=== PATIENT | female | born 1955 | race Caucasian/White ===

== ENCOUNTER 2017-04-18 20:45 | Emergency (ER) | payer BC ==
--- NOTE | 2017-04-18 21:08 | EDM.PDOC ---
ED HPI GENERAL MEDICAL PROBLEM - General Chief Complaint: Chest Pain Stated Complaint: CHEST PAIN, HEARTBURN Time Seen by Provider: 04/18/17 20:57 Source of Information: Reports: Patient History Limitations: Reports: No Limitations - History of Present Illness INITIAL COMMENTS - FREE TEXT/NARRATIVE: Divya with c/o of severe heartburn for past 2 days. Tonight noted pain going to left shoulder, No nausea. Had tried baking soda and tums. Pain has been intermittent today, not associated with position or activity. Prior hx with triple bypass. Has been doing well since. Denied fever or chills, no vomiting, No SOB. Admits pain started after drinking 2 [place] [employer]. Chest Pain Score (Numeric/FACES): 6 - Related Data Allergies Allergy/AdvReac Type Severity Reaction Status Date / Time No Known Allergies Allergy Verified 04/18/17 20:52 Home Meds: Home Meds Pantoprazole [ProTONIX] 40 mg PO DAILY 06/12/14 [History] Venlafaxine HCl [Venlafaxine ER] 75 mg PO DAILY 06/12/14 [History] Aspirin [Ecotrin] 1 tab PO DAILY 05/05/15 [History] Metoprolol Tartrate [Lopressor] 1 tab PO BID 05/05/15 [History] atorvaSTATin [Lipitor] 1 tab PO BEDTIME 05/05/15 [History] Multivits-Min/Iron/FA/Lutein [Centrum Silver Women Tablet] 1 tab PO DAILY [History] Past Medical History - Past Surgical History Other Cardiovascular Surgeries/Procedures: cardiac cath Social & Family History - Tobacco Use Smoking Status *Q: Former Smoker Years of Tobacco use: 15 Second Hand Smoke Exposure: No - Alcohol Use Days Per Week of Alcohol Use: 1 Number of Drinks Per Day: 0 Total Drinks Per Week: 0 - Recreational Drug Use Recreational Drug Use: No ED ROS GENERAL - Review of Systems Review Of Systems: ROS reveals no pertinent complaints other than HPI. ED EXAM, GENERAL - Physical Exam Exam: See Below Exam Limited By: No Limitations General Appearance: Alert, No Apparent Distress, Anxious Eye Exam: Bilateral Eye: EOMI, PERRL Ears: Normal External Exam, Normal TMs Nose: Normal Inspection Throat/Mouth: Normal Inspection, Normal Oropharynx Head: Atraumatic Neck: Normal Inspection, Full Range of Motion. No: Lymphadenopathy (L), Lymphadenopathy (R) Respiratory/Chest: No Respiratory Distress, Lungs Clear, Normal Breath Sounds Cardiovascular: Normal Peripheral Pulses, Regular Rate, Rhythm, No Edema GI/Abdominal: Normal Bowel Sounds, Soft, Tender (epigastric) Back Exam: Normal Inspection, Full Range of Motion Extremities: Normal Inspection Neurological: Alert, Oriented, Normal Cognition Psychiatric: Normal Affect, Normal Mood, Anxious Skin Exam: Warm, Dry, Intact, Normal Color Course - Vital Signs Last Recorded V/S: Last Vital Signs Temp 99 F 04/19/17 02:05 Pulse 62 04/19/17 02:05 Resp 14 04/19/17 02:05 BP 128/78 04/19/17 02:05 Pulse Ox 99 04/19/17 02:05 - Orders/Labs/Meds Orders: Active Orders 24 hr Category Date Time Status EKG 12 Lead [EKG Documentation Completion] [] URGENT Care 04/18/17 20:50 Active EKG 12 Lead [EKG Documentation Completion] [RC] URGENT Care 04/19/17 01:30 Active Labs: Laboratory Tests 04/18/17 04/18/17 04/18/17 Range/Units 21:00 21:00 21:00 WBC 7.0 (5.0-10.0) 10^3/uL RBC 4.48 (4.2-5.4) 10^6/uL Hgb 12.9 (12.0-16.0) g/dL Hct 38.9 (37.0-47.0) % MCV 86.8 (80-100) fL MCH 28.8 (27.0-34.0) pg MCHC 33.2 (33.0-35.0) g/dL Plt Count 210 (150-450) 10^3/uL Neut % (Auto) 67.8 (42.2-75.2) % Lymph % (Auto) 14.2 L (20.5-50.1) % Rhea % (Auto) 16.8 H (2-8) % Eos % (Auto) 0.9 L (1.0-3.0) % Baso % (Auto) 0.3 (0.0-1.0) % D-Dimer, Quantitative < 100 (0-400) ng/mL Sodium 141 (135-145) mmol/L Potassium 3.4 L (3.6-5.0) mmol/L Chloride 98 L (101-111) mmol/L Carbon Dioxide 32.0 H (21.0-31.0) mmol/L Anion Gap 14.4 BUN 15 (7-18) mg/dL Creatinine 0.9 (0.6-1.3) mg/dL Est Cr Clr Drug Dosing 59.89 mL/min Estimated GFR (MDRD) > 60 BUN/Creatinine Ratio 16.66 Glucose 110 H (74-105) mg/dL Calcium 9.1 (8.4-10.2) mg/dl Total Bilirubin 0.5 (0.2-1.0) mg/dL AST 22 (10-42) IU/L ALT 18 (10-60) IU/L Alkaline Phosphatase 59 (42-121) IU/L CK-MB (CK-2) (0.4-4.7) ng/mL Troponin I 0.02 (0.00-0.02) ng/ml C-Reactive Protein (0.0-1.3) mg/dL B-Natriuretic Peptide 44 (0-100) pg/ml Total Protein 6.6 L (6.7-8.2) g/dl Albumin 4.0 (3.2-5.5) g/dl Globulin 2.6 Albumin/Globulin Ratio 1.54 Amylase 34 (28-100) U/L Lipase 25 (22-51) U/L 04/18/17 04/18/17 04/19/17 Range/Units 21:00 21:00 01:04 WBC (5.0-10.0) 10^3/uL RBC (4.2-5.4) 10^6/uL Hgb (12.0-16.0) g/dL Hct (37.0-47.0) % MCV (80-100) fL MCH (27.0-34.0) pg MCHC (33.0-35.0) g/dL Plt Count (150-450) 10^3/uL Neut % (Auto) (42.2-75.2) % Lymph % (Auto) (20.5-50.1) % Rhea % (Auto) (2-8) % Eos % (Auto) (1.0-3.0) % Baso % (Auto) (0.0-1.0) % D-Dimer, Quantitative (0-400) ng/mL Sodium (135-145) mmol/L Potassium (3.6-5.0) mmol/L Chloride (101-111) mmol/L Carbon Dioxide (21.0-31.0) mmol/L Anion Gap BUN (7-18) mg/dL Creatinine (0.6-1.3) mg/dL Est Cr Clr Drug Dosing mL/min Estimated GFR (MDRD) BUN/Creatinine Ratio Glucose (74-105) mg/dL Calcium (8.4-10.2) mg/dl Total Bilirubin (0.2-1.0) mg/dL AST (10-42) IU/L ALT (10-60) IU/L Alkaline Phosphatase (42-121) IU/L CK-MB (CK-2) 2.20 (0.4-4.7) ng/mL Troponin I < 0.02 (0.00-0.02) ng/ml C-Reactive Protein 2.6 H (0.0-1.3) mg/dL B-Natriuretic Peptide (0-100) pg/ml Total Protein (6.7-8.2) g/dl Albumin (3.2-5.5) g/dl Globulin Albumin/Globulin Ratio Amylase (28-100) U/L Lipase (22-51) U/L Meds: Medications Discontinued Medications Generic Name Dose Route Start Last Admin Trade Name Freq PRN Reason Stop Dose Admin Famotidine 20 mg 04/18/17 21:57 04/18/17 22:05 Pepcid IVPUSH 04/18/17 21:58 20 mg ONETIME ONE Administration - Radiology Interpretation Free Text/Narrative:: CXR negative. - Re-Assessments/Exams Free Text/Narrative Re-Assessment/Exam: Repat Troponin negative, EKG unchanged from prior. Findings discussed with patient. Instructed to follow this week with PCP as will need to re-establish cardiac care. Urgen followup if chest pain type symptoms. Departure - Departure Time of Disposition: 01:40 Disposition: Home, Self-Care 01 Condition: Good Clinical Impression: Epigastric pain Instructions: Nonspecific Chest Pain, [id number], Angina Pectoris, Easy-to- Read Referrals: Enid Lieberman PA [Physician Manager Of Investigations] - Forms: ED Department Discharge Additional Instructions: bland low fat diet limit alcohol and caffeine follow up in clinic this week ,sooner if chest or jaw pain - My Orders Last 24 Hours: My Active Orders 04/18/17 20:50 EKG 12 Lead [EKG Documentation Completion] [RC] URGENT 04/19/17 01:30 EKG 12 Lead [EKG Documentation Completion] [RC] URGENT - Assessment/Plan Last 24 Hours: My Active Orders 04/18/17 20:50 EKG 12 Lead [EKG Documentation Completion] [RC] URGENT 04/19/17 01:30 EKG 12 Lead [EKG Documentation Completion] [RC] URGENT
[2017-04-18 21:49] LABS: CHLORIDE,CL 98 mmol/L (101-111); SODIUM,NA 141 mmol/L (135-145)
[2017-04-18] MEDS ORDERED: Famotidine 20 MG/2 ML SDV IVPUSH ONE (21:57)
[2017-04-19 02:06] VITALS: BP 128/78
--- NOTE | 2017-04-20 16:33 | EKG ---
04/18/2017 - LETITIA HALEY I reviewed the EKG and agree with the machine reading. [facility] /[id number]
--- NOTE | 2017-04-20 16:39 | EKG ---
04/19/2017 - LETITIA HALEY - TIME: 01:07. FINDINGS: I reviewed the EKG which shows a normal sinus rhythm without ST interval, elevation, or T-wave changes. LA interval is normal. Heart rate is normal. No arrhythmia. Overall, normal EKG. [facility] /[id number]
== END 2017-04-19 02:08 | disposition home or self-care (01) ==
LOC: DL.ED 20:45
DX: R10.13 Epigastric pain (principal); F17.210 Nicotine dependence, cigarettes, uncomplicated; Z79.899 Other long term (current) drug therapy; Z87.891 Personal history of nicotine dependence
CPT/HCPCS: 36415; 71010; 80053; 82150; 82553; 83690; 83880; 84484; 85025; 85379; 86140; 93005; 96374; 99285; S0028

== ENCOUNTER 2021-02-02 13:19 | Emergency (ER) | payer BC, MEDICARE ==
[2021-02-02 14:02] VITALS: BP 147/80; PULSE 59
--- NOTE | 2021-02-02 15:52 | CR ---
PROCEDURE INFORMATION: Exam: XR Right Wrist Exam date and time: 02/02/2021 3:30 PM Age: 65 years old Clinical indication: Pain; Wrist; Bilateral; Additional info: Bilateral wrist injury, foosh TECHNIQUE: Imaging protocol: XR Right wrist. Views: 3 or more views. COMPARISON: No relevant prior studies available. FINDINGS: Bones/joints: There is linear lucency producing a cortical defect in articular surface of the distal radius that is present on multiple images. Findings are suspicious for nondisplaced intra-articular fracture of the distal radius. Carpal bones and distal ulna are intact. There is no dislocation. Arthritis of some of the the distal interphalangeal joints of the visible hand. Soft tissues: Normal. IMPRESSION: Suspect nondisplaced intra-articular fracture of the distal radius. PROCEDURE INFORMATION: Exam: XR Left Wrist Exam date and time: 02/02/2021 3:30 PM Age: 65 years old Clinical indication: Pain; Wrist; Bilateral; Additional info: Bilateral wrist injury, foosh TECHNIQUE: Imaging protocol: XR Left wrist. Views: 3 or more views. COMPARISON: No relevant prior studies available. FINDINGS: Bones/joints: No acute fracture or dislocation. Arthritis of some of the interphalangeal joints of the visible hand. Soft tissues: Normal. IMPRESSION: No acute fracture or dislocation.
--- NOTE | 2021-02-02 16:18 | EDM.PDOC ---
Scribed by Rosa Obregon 02/02/21 [id number] for Maria T Varner MD ED HPI GENERAL MEDICAL PROBLEM - General Chief Complaint: Upper Extremity Injury/Pain Time Seen by Provider: 02/02/21 15:03 Source of Information: Reports: Patient, RN, RN Notes Reviewed History Limitations: Reports: No Limitations - History of Present Illness INITIAL COMMENTS - FREE TEXT/NARRATIVE: Patient presents to ED stating that she was out walking her 4 miles this morning when a dog tripped her causing her to fall forward catching herself with both of her hands. She did hit her head but did not loose consciousness. She does have an abrasion on her for which she is not worried about. She is noting pain in her wrist about 6/10, right worse than left. Pain with pronation and supination of the forearm. Onset: Today Duration: Getting Worse Location: Reports: Upper Extremity, Left, Upper Extremity, Right Quality: Reports: Ache Severity: Moderate Improves with: Reports: None Worsens with: Reports: None Associated Symptoms: Reports: No Other Symptoms Bilateral Wrist Pain Score (Numeric/FACES): 6 - Related Data Allergies Allergy/AdvReac Type Severity Reaction Status Date / Time No Known Allergies Allergy Verified 02/02/21 13:46 Home Meds: Home Meds Venlafaxine HCl [Venlafaxine ER] 75 mg PO DAILY 06/12/14 [History] Metoprolol Tartrate [Lopressor] 25 mg PO BID 05/05/15 [History] atorvaSTATin [Lipitor] 40 mg PO BEDTIME 05/05/15 [History] Multivit-Min/Iron/Folic/Lutein [Centrum Silver Women Tablet] 1 tab PO DAILY 04/18/17 [History] Aspirin [Aspirin EC] 325 mg PO DAILY 02/28/19 [History] Benzonatate 100 mg PO Q6H PRN 02/28/19 [History] Omeprazole Magnesium [Prilosec Otc] 20 mg PO DAILY 02/28/19 [History] Past Medical History Cardiovascular History: Reports: PR Gastrointestinal History: Reports: GERD 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: Psychiatric History: Reports: Anxiety - Infectious Disease History Infectious Disease History: Reports: Chicken Pox, Measles, Mumps - Past Surgical History HEENT Surgical History: Reports: Adenoidectomy, Tonsillectomy Cardiovascular Surgical History: Reports: Coronary Artery Bypass Other Cardiovascular Surgeries/Procedures: cardiac cath Social & Family History - Family History Family Medical History: No Pertinent Family History Cardiac: Reports: PR Neurological: Reports: CVA - Tobacco Use Tobacco Use Status *Q: Never Tobacco User Second Hand Smoke Exposure: No - Caffeine Use Caffeine Use: Reports: Coffee - Recreational Drug Use Recreational Drug Use: No Review of Systems - Review of Systems Review Of Systems: Comprehensive ROS is negative, except as noted in HPI. ED EXAM, GENERAL - Physical Exam Exam: See Below Exam Limited By: No Limitations General Appearance: Alert, WD/WN, No Apparent Distress Head: Atraumatic Neck: Normal Inspection, Supple, Non-Tender, Full Range of Motion Respiratory/Chest: No Respiratory Distress Cardiovascular: Regular Rate, Rhythm Extremities: Other (Left wrist with mild tenderness to palpation of the snuff box. Right wrist with moderate swelling of the distal radius and tenderness to the dorsal wrist. Decreased range of motion to the right wrist secondary to pain. Neurovascularly intact. ) Course - Vital Signs Last Recorded V/S: Last Vital Signs Temp 97.2 F 02/02/21 13:50 Pulse 59 L 02/02/21 13:50 Resp 16 02/02/21 13:50 BP 147/80 H 02/02/21 13:50 Pulse Ox 98 02/02/21 13:50 - Radiology Interpretation Free Text/Narrative:: Right wrist: Suspect nondisplaced intra-articular fracture of the distal radius. See rad report. Left wrist: No acute fracture or dislocation. See rad report. - Re-Assessments/Exams Free Text/Narrative Re-Assessment/Exam: Patient placed in a right velcro wrist splint per orthopedics. Departure - Departure Time of Disposition: 16:02 Disposition: Home, Self-Care 01 Condition: Good Clinical Impression: Fracture, radius, distal Qualifiers: Encounter type: initial encounter Fracture type: closed Fracture morphology: other intra-articular Laterality: right Qualified Code(s): S52.571A - Other intraarticular fracture of lower end of right radius, initial encounter for closed fracture - Discharge Information *PRESCRIPTION DRUG MONITORING PROGRAM REVIEWED*: Not Applicable *COPY OF PRESCRIPTION DRUG MONITORING REPORT IN PATIENT FROILAN: Not Applicable Instructions: Radial Head Fracture Forms: ED Department Discharge Additional Instructions: Wear splint on right wrist. Orthopedics will call tomorrow with a time for Tuesday appointment. Sepsis Event Note (ED) - Evaluation Sepsis Screening Result: No Definite Risk - Focused Exam Vital Signs: Vital Signs Temp Pulse Resp BP Pulse Ox 02/02/21 13:50 97.2 F 59 L 16 147/80 H 98 I have read and agree with the documentation that has been completed regarding this visit. By signing this record, I attest that the documentation was completed in my physical presence and is an accurate record of the encounter.
== END 2021-02-02 16:18 | disposition home or self-care (01) ==
LOC: DL.ED 13:19
DX: S52.571A Other intraarticular fracture of lower end of right radius, initial encounter for closed fracture (principal); I25.2 Old myocardial infarction; K21.9 Gastro-esophageal reflux disease without esophagitis; Z79.82 Long term (current) use of aspirin; Z79.899 Other long term (current) drug therapy; W01.198A Fall on same level from slipping, tripping and stumbling with subsequent striking against other object, initial encounter
CPT/HCPCS: 73110-50; 99283-25

== ENCOUNTER 2022-12-30 05:56 | Day surgery (SDC) | payer MEDICARE, OTHER ==
[2022-12-30] MEDS ORDERED: Dextrose 5%-0.45% NaCl 1,000 ML IV SCH (06:00)
[2022-12-30] MEDS ORDERED: fentaNYL 100 MCG/2 ML SDV ONE (06:50)
[2022-12-30] MEDS ORDERED: Midazolam 1 MG/ML 2 ML SDV ONE (06:50)
[2022-12-30] MEDS ORDERED: fentaNYL 100 MCG/2 ML SDV IV ONE ×2 (06:58→06:59)
[2022-12-30] MEDS ORDERED: Midazolam 1 MG/ML 2 ML SDV IV ONE ×2 (06:59→07:00)
[2022-12-30 08:17] VITALS: BP 114/58; PULSE 48
== END 2022-12-30 08:39 | disposition home or self-care (01) ==
LOC: DL.ENDO 05:56
PROVIDERS: ATTEND Internal Medicine Gastroenterology
DX: K31.89 Other diseases of stomach and duodenum (principal); K21.00 Gastro-esophageal reflux disease with esophagitis, without bleeding; K44.9 Diaphragmatic hernia without obstruction or gangrene; K22.10 Ulcer of esophagus without bleeding; K31.7 Polyp of stomach and duodenum; I25.10 Atherosclerotic heart disease of native coronary artery without angina pectoris; G47.33 Obstructive sleep apnea (adult) (pediatric); E78.00 Pure hypercholesterolemia, unspecified; F42.9 Obsessive-compulsive disorder, unspecified; Z95.1 Presence of aortocoronary bypass graft; Z90.89 Acquired absence of other organs
CPT/HCPCS: 43239; 87077; J2250; J3010; J7042

== ENCOUNTER 2024-05-30 11:43 | Emergency (ER) | payer MEDICARE, OTHER ==
[2024-05-30] MEDS ORDERED: Sodium Chloride 0.9% 10 ML Syringe FLUSH PRN (11:58)
[2024-05-30 11:59] VITALS: BP 174/81; PULSE 59
[2024-05-30 12:23] LABS: BASOPHILS PERCENT AUTO 0.3 % (0.0-1.0); EOSINOPHILS PERCENT AUTO 2.3 % (1.0-3.0); HEMATOCRIT 39.2 % (37.0-47.0); HEMOGLOBIN 12.9 g/dL (12.0-16.0); LYMPHOCYTES PERCENT AUTO 26.2 % (20.5-50.1); MEAN CORPUSCULAR HEMOGLOBIN 28.4 pg (27.0-34.0); MEAN CORPUSCULAR HGB CONC 32.9 g/dL (33.0-35.0); MEAN CORPUSCULAR VOLUME 86.3 fL (80-100); MONOCYTES PERCENT AUTO 17.4 % (2-8); NEUTROPHILS PERCENT AUTO 53.8 % (42.2-75.2); PLATELET COUNT,PLT 221 10^3/uL (150-450); RED BLOOD CELL COUNT 4.54 10^6/uL (4.2-5.4)
[2024-05-30 12:38] LABS: PROTHROMBIN TIME 10.3 SEC (9.0-12.0); PTT,PARTIAL THROMBOPLSTIN TIME 24.4 SEC (22.0-34.0)
[2024-05-30 12:42] LABS: A/G RATIO 1.1; ALANINE AMINOTRANSFERASE,ALT 29 U/L (14-59); ALBUMIN 3.6 g/dL (3.4-5.0); ALKALINE PHOSPHATASE 77 U/L (46-116); ANION GAP 11.1 mEq/L (7-13); ASPARTATE AMNIOTRANSFERASE,AST 23 U/L (15-37); BILIRUBIN TOTAL 0.2 mg/dL (0.2-1.0); BLOOD UREA NITROGEN,BUN 14 mg/dL (7-18); BUN/CREATININE RATIO 17.3 (No establ ref range); CALCIUM 8.7 mg/dL (8.5-10.1); CARBON DIOXIDE,CO2 29 mmol/L (21-32); CHLORIDE,CL 106 mmol/L (98-107); CREATININE 0.81 mg/dL (0.55-1.02); GLUCOSE RANDOM 99 mg/dL (70-99); POTASSIUM,K 4.1 mmol/L (3.5-5.1); PROTEIN TOTAL,TP 6.9 g/dL (6.4-8.2); SODIUM,NA 142 mmol/L (136-145)
[2024-05-30 12:47] LABS: C-REACTIVE PROTEIN < 0.50 ng/dL (<=0.50); ESTIMATED GFR 78 mL/min (>=60)
[2024-05-30 12:48] LABS: D-DIMER QUANTITATIVE < 100 ng/mL (0-400)
== END 2024-05-30 13:30 | disposition home or self-care (01) ==
LOC: DL.ED 11:43
DX: R07.89 Other chest pain (principal); I25.10 Atherosclerotic heart disease of native coronary artery without angina pectoris; E78.00 Pure hypercholesterolemia, unspecified; I25.2 Old myocardial infarction; Z86.16 Personal history of COVID-19; Z79.82 Long term (current) use of aspirin; Z79.899 Other long term (current) drug therapy
CPT/HCPCS: 71045; 80053; 83605; 83735; 84443; 84484; 85025; 85379; 85610; 85730; 86140; 87428-QW; 93005; 99285